=== PATIENT | female | born 1935 | race Caucasian/White ===

== ENCOUNTER 2021-11-19 20:29 | Inpatient (IN) | payer OTHER ==
[~2021-11-19] VITALS: Ht 167.6 cm; Wt 75.8 kg
[2021-11-19] MEDS ORDERED: NITROGLYCERIN 0.4 MG SL TAB SL ONE (20:45)
[2021-11-19] MEDS ORDERED: FUROSEMIDE 40 MG/4 ML VIAL IV ONE (20:45)
[2021-11-19] MEDS ORDERED: LABETALOL HCL 5 MG/ML 4ML SYRINGE IV ONE ×2 (20:45→23:00)
[2021-11-19 22:24] LABS: Basophils # (auto) 0 10 ^3/uL (0-0.2); Basophils % (auto) 0.5 % (0.0-2.0); Eosinophils # (auto) 0.1 10 ^3/uL (0-0.8); Eosinophils % (auto) 0.8 % (0.0-7.0); Hematocrit 41.6 % (36.0-46.0); Hemoglobin 13.3 g/dL (12.2-16.2); Lymphocytes # (auto) 2.2 10 ^3/uL (0.4-5.4); Lymphocytes % (auto) 24.2 % (10.0-50.0); Mean Corpuscular Hemoglobin 27.2 pg (28.0-32.0); Mean Corpuscular Volume 85.2 fL (80.0-100.0); Monocytes # (auto) 0.4 10 ^3/uL (0-1.3); Monocytes % (auto) 4.5 % (0.0-12.0); Neutrophils # (auto) 6.2 10 ^3/uL (1.6-8.6); Nucleated Red Blood Cells % 0.1 %; Red Blood Cells 4.89 10^6/uL (4.0-5.20); Red Cell Distribution Width 16.4 % (11.8-14.3); White Blood Cell 8.9 10^3/uL (4.4-10.8)
[2021-11-19 22:39] LABS: Albumin 3.6 g/dL (3.4-5.0); Calcium 9.1 mg/dL (8.5-10.1); Magnesium 1.9 mg/dL (1.6-2.6)
[2021-11-19 22:42] LABS: Bilirubin, Total 0.6 mg/dL (0.2-1.0); Total Protein 6.8 g/dL (6.4-8.2)
[2021-11-19] MEDS ORDERED: NITROGLYCERIN 0.4 MG SL TAB SL PRN (23:00)
[2021-11-19] MEDS ORDERED: ONDANSETRON HCL 4 MG/2 ML VIAL IV PRN (23:00)
[2021-11-19] MEDS ORDERED: CLOPIDOGREL BISULFATE 75 MG TAB PO ONE (23:00)
[2021-11-19] MEDS ORDERED: MORPHINE SULFATE INJ 2 MG/ml SYRG IV PRN (23:00)
[2021-11-19] MEDS ORDERED: HEPARIN SODIUM (PORCINE) 5000 UNITS/ML 1ML VIAL IV ONE (23:00)
[2021-11-19] MEDS ORDERED: ATORVASTATIN 20 MG TAB PO ONE (23:00)
[2021-11-19 23:19] LABS: INR 1.09 (0.9-1.15); Partial Thromboplastin Time 28.4 sec (24.6-33.4)
[2021-11-19 23:25] LABS: Urine Bacteria FEW /hpf (None Seen); Urine Blood Negative /uL (Negative); Urine Specific Gravity 1.007 (1.001-1.035); Urine WBC 3 /hpf (0 - 5)
[2021-11-19] MEDS ORDERED: HEPARIN DRIP/D5W 100UNITS/ML 250 ML IV SCH (23:45)
[2021-11-20] VITALS (54 sets, daily range): BP systolic 94–170; BP diastolic 52–148
[2021-11-20] MEDS: TEMAZEPAM 15 MG CAP PO PRN (01:36)
[2021-11-20 04:45] LABS: Basophils # (auto) 0.1 10 ^3/uL (0-0.2); Basophils % (auto) 1.1 % (0.0-2.0); Eosinophils # (auto) 0 10 ^3/uL (0-0.8); Eosinophils % (auto) 0.1 % (0.0-7.0); Hematocrit 39.3 % (36.0-46.0); Hemoglobin 12.9 g/dL (12.2-16.2); Lymphocytes # (auto) 1.6 10 ^3/uL (0.4-5.4); Lymphocytes % (auto) 21.9 % (10.0-50.0); Mean Corpuscular Hemoglobin 27.1 pg (28.0-32.0); Mean Corpuscular Hgb Conc. 32.8 g/dL (32.0-36.0); Mean Corpuscular Volume 82.7 fL (80.0-100.0); Monocytes # (auto) 0.3 10 ^3/uL (0-1.3); Monocytes % (auto) 4.6 % (0.0-12.0); Neutrophils # (auto) 5.3 10 ^3/uL (1.6-8.6); Neutrophils % (auto) 72.3 % (37.0-80.0); Red Blood Cells 4.75 10^6/uL (4.0-5.20); Red Cell Distribution Width 15.9 % (11.8-14.3); White Blood Cell 7.3 10^3/uL (4.4-10.8)
[2021-11-20 05:11] LABS: Albumin 3.5 g/dL (3.4-5.0); BUN/Creatinine Ratio 14.9; Bilirubin, Total 0.8 mg/dL (0.2-1.0); Potassium 3.6 mmol/L (3.5-5.1); Total Protein 6.3 g/dL (6.4-8.2)
[2021-11-20 07:28] LABS: INR 1.17 (0.9-1.15)
[2021-11-20 07:37] LABS: Partial Thromboplastin Time 128.1 sec (24.6-33.4)
[2021-11-20] MEDS: HEPARIN DRIP/D5W 100UNITS/ML 250 ML IV SCH (09:30)
[2021-11-20] MEDS ORDERED: ENOXAPARIN SOD 30 MG/0.3 ML SYRINGE SC SCH (10:00)
[2021-11-20] MEDS: PANTOPRAZOLE 40 MG TAB PO SCH (10:47)
[2021-11-20] MEDS: ASPirin 81 mg TAB PO SCH (10:47)
[2021-11-20] MEDS ORDERED: cloNIDine HCL 0.1 MG TAB PO PRN (12:00)
[2021-11-20] MEDS ORDERED: amLODIPine BESYLATE 5 MG TAB PO ONE (12:00)
[2021-11-20] MEDS ORDERED: LOSARTAN POTASSIUM 25 MG TAB PO ONE (12:00)
[2021-11-20] MEDS: HYDROcodone-ACET 5/325MG TAB PO PRN ×2 (12:08→21:48)
[2021-11-20] MEDS ORDERED: ASPI-498 OR (13:54)
[2021-11-20] MEDS ORDERED: IBUP400T23 PO (14:23)
[2021-11-20] MEDS ORDERED: ATOR20TA PO (14:23)
[2021-11-20] MEDS ORDERED: POTA10TA51 PO (14:23)
[2021-11-20] MEDS ORDERED: METO-289 PO (14:23)
[2021-11-20] MEDS ORDERED: FOLI1TAB6 PO (14:23)
[2021-11-20] MEDS ORDERED: CYAN500L3 PO (14:23)
[2021-11-20] MEDS ORDERED: FURO20TA3 PO (14:23)
[2021-11-20] MEDS ORDERED: HYDR-4902 PO (14:23)
[2021-11-20 15:20] LABS: INR 1.08 (0.9-1.15); Partial Thromboplastin Time 31.8 sec (24.6-33.4)
[2021-11-20] MEDS ORDERED: HEPARIN SODIUM (PORCINE) 5000 UNITS/ML 1ML VIAL IV ONE (16:15)
[2021-11-20] MEDS ORDERED: HEPARIN DRIP/D5W 100UNITS/ML 250 ML IV SCH (16:30)
[2021-11-20] MEDS: METOPROLOL SUCCINATE XL 50 MG TAB PO SCH (17:50)
[2021-11-20] MEDS: ATORVASTATIN 20 MG TAB PO SCH (21:49)
[2021-11-20 22:53] LABS: INR 1.12 (0.9-1.15)
[2021-11-20 23:13] LABS: Partial Thromboplastin Time 92.1 sec (24.6-33.4)
[2021-11-21] VITALS (31 sets, daily range): BP systolic 83–144; BP diastolic 36–110
[2021-11-21] MEDS: TEMAZEPAM 15 MG CAP PO PRN ×2 (00:15→23:09)
[2021-11-21] MEDS: HYDROcodone-ACET 5/325MG TAB PO PRN ×2 (07:12→20:45)
[2021-11-21 08:17] LABS: INR 1.06 (0.9-1.15); Partial Thromboplastin Time 32.2 sec (24.6-33.4)
[2021-11-21] MEDS ORDERED: HEPARIN SODIUM (PORCINE) 5000 UNITS/ML 1ML VIAL IV ONE (09:00)
[2021-11-21] MEDS ORDERED: HEPARIN DRIP/D5W 100UNITS/ML 250 ML IV SCH (09:00)
[2021-11-21] MEDS ORDERED: CIPROFLOXACIN 400MG/200ML 200 ML IV ONE ×2 (09:15→10:15)
[2021-11-21 09:48] LABS: Urine Bacteria NONE SEEN /hpf (None Seen); Urine Blood 3+ /uL (Negative); Urine Mucus FEW (None Seen); Urine Specific Gravity 1.015 (1.001-1.035); Urine WBC 2767 /hpf (0 - 5); Urine WBC Clumps PRESENT /hpf (None Seen)
[2021-11-21] MEDS ORDERED: LOSARTAN POTASSIUM 25 MG TAB PO SCH (10:00)
[2021-11-21 10:32] LABS: Basophils # (auto) 0.1 10 ^3/uL (0-0.2); Basophils % (auto) 1.1 % (0.0-2.0); Eosinophils # (auto) 0.2 10 ^3/uL (0-0.8); Eosinophils % (auto) 2.6 % (0.0-7.0); Hematocrit 40.7 % (36.0-46.0); Hemoglobin 13.7 g/dL (12.2-16.2); Lymphocytes # (auto) 2.4 10 ^3/uL (0.4-5.4); Lymphocytes % (auto) 25.9 % (10.0-50.0); Mean Corpuscular Hemoglobin 28.2 pg (28.0-32.0); Mean Corpuscular Hgb Conc. 33.6 g/dL (32.0-36.0); Mean Corpuscular Volume 83.9 fL (80.0-100.0); Monocytes # (auto) 0.6 10 ^3/uL (0-1.3); Monocytes % (auto) 6.5 % (0.0-12.0); Neutrophils # (auto) 5.8 10 ^3/uL (1.6-8.6); Neutrophils % (auto) 63.9 % (37.0-80.0); Nucleated Red Blood Cells % 0.1 %; Red Blood Cells 4.85 10^6/uL (4.0-5.20); Red Cell Distribution Width 16.3 % (11.8-14.3); White Blood Cell 9.1 10^3/uL (4.4-10.8)
[2021-11-21] MEDS: METOPROLOL SUCCINATE XL 50 MG TAB PO SCH (10:36)
[2021-11-21] MEDS: PANTOPRAZOLE 40 MG TAB PO SCH (10:36)
[2021-11-21] MEDS: ASPirin 81 mg TAB PO SCH (10:39)
[2021-11-21] MEDS: amLODIPine BESYLATE 5 MG TAB PO SCH (10:41)
[2021-11-21 11:51] LABS: BUN/Creatinine Ratio 13.3; Calcium 8.8 mg/dL (8.5-10.1); Potassium 3.6 mmol/L (3.5-5.1)
[2021-11-21 15:30] LABS: INR 1.13 (0.9-1.15); Partial Thromboplastin Time 67.8 sec (24.6-33.4)
[2021-11-21] MEDS ORDERED: fentaNYL CITRATE 100 MCG/2 ML VL ONE (16:26)
[2021-11-21] MEDS ORDERED: MIDAZOLAM HCL 2MG/2ML 2ml VIAL (1mg/ml) ONE (16:27)
[2021-11-21] MEDS ORDERED: IODIXANOL 320MG/ML 100ML BTL IV ONE (16:31)
[2021-11-21] MEDS ORDERED: VERAPAMIL 2.5MG/ML INJ 2ML VIAL IV ONE (16:31)
[2021-11-21] MEDS ORDERED: SODIUM CHL 0.9% 0 ML ONE (16:31)
[2021-11-21] MEDS ORDERED: HEPARIN SODIUM (PORCINE) 5000 UNITS/ML 1ML VIAL ONE (16:31)
[2021-11-21] MEDS ORDERED: LIDOCAINE 2%HCL (LOCAL ANESTH.) INJ 20ML MDV ONE (16:31)
[2021-11-21] MEDS ORDERED: ANGIOMAX 250 MG VIAL IV ONE (16:31)
[2021-11-21] MEDS ORDERED: SODIUM CHLORIDE 0.9% 500 ML IV ONE (17:30)
[2021-11-21] MEDS: SODIUM CHLORIDE 0.9% 1,000 ML IV SCH (19:50)
[2021-11-21] MEDS: ATORVASTATIN 20 MG TAB PO SCH (23:09)
[2021-11-22] VITALS (18 sets, daily range): BP systolic 100–141; BP diastolic 58–94
[2021-11-22] MEDS: SODIUM CHLORIDE 0.9% 1,000 ML IV SCH (04:12)
[2021-11-22 04:40] LABS: Basophils # (auto) 0.1 10 ^3/uL (0-0.2); Basophils % (auto) 0.9 % (0.0-2.0); Eosinophils # (auto) 0.3 10 ^3/uL (0-0.8); Eosinophils % (auto) 3.8 % (0.0-7.0); Hematocrit 38.8 % (36.0-46.0); Hemoglobin 12.7 g/dL (12.2-16.2); Lymphocytes # (auto) 2.4 10 ^3/uL (0.4-5.4); Lymphocytes % (auto) 33.8 % (10.0-50.0); Mean Corpuscular Hemoglobin 27.4 pg (28.0-32.0); Mean Corpuscular Hgb Conc. 32.9 g/dL (32.0-36.0); Mean Corpuscular Volume 83.3 fL (80.0-100.0); Monocytes # (auto) 0.5 10 ^3/uL (0-1.3); Monocytes % (auto) 6.4 % (0.0-12.0); Neutrophils % (auto) 55.1 % (37.0-80.0); Nucleated Red Blood Cells % 0.1 %; Red Blood Cells 4.65 10^6/uL (4.0-5.20); Red Cell Distribution Width 16.5 % (11.8-14.3); White Blood Cell 7.2 10^3/uL (4.4-10.8)
[2021-11-22 04:51] LABS: BUN/Creatinine Ratio 16.8; Calcium 8.3 mg/dL (8.5-10.1); Potassium 3.7 mmol/L (3.5-5.1)
[2021-11-22] MEDS ORDERED: cefTRIAXone 1GM/50ML D5W 50 ML IV SCH (09:00)
[2021-11-22] MEDS: PANTOPRAZOLE 40 MG TAB PO SCH (09:22)
[2021-11-22] MEDS: METOPROLOL SUCCINATE XL 50 MG TAB PO SCH (09:23)
[2021-11-22] MEDS ORDERED: ASPirin 81 mg TAB PO SCH (10:00)
[2021-11-22] MEDS: amLODIPine BESYLATE 5 MG TAB PO SCH (10:00)
[2021-11-22] MEDS: HYDROcodone-ACET 5/325MG TAB PO PRN (14:06)
[2021-11-22] MEDS ORDERED: LEVO500T31 PO (16:51)
== END 2021-11-22 19:15 | disposition home or self-care (01) | DRG 281 ==
LOC: EDBD 20:29 → ER 20:29 → EDBD 23:08 → TELE 23:08 → ICU WEST 11-20 09:09 → ICU CENTRL 11-22 10:07 → DOU IN ICU 11-22 10:25
PROVIDERS: ADMIT Nurse Practitioner; ATTEND Internal Medicine
PROC: B2111ZZ Fluoroscopy of Multiple Coronary Arteries using Low Osmolar Contrast (ICD-10-PCS; principal; 2021-11-21)
PROC: B2151ZZ Fluoroscopy of Left Heart using Low Osmolar Contrast (ICD-10-PCS; 2021-11-21)
PROC: 4A023N7 Measurement of Cardiac Sampling and Pressure, Left Heart, Percutaneous Approach (ICD-10-PCS; 2021-11-21)
DX: I21.4 Non-ST elevation (NSTEMI) myocardial infarction (principal); I16.1 Hypertensive emergency; N30.00 Acute cystitis without hematuria; I16.0 Hypertensive urgency; E66.01 Morbid (severe) obesity due to excess calories; E78.5 Hyperlipidemia, unspecified; G62.9 Polyneuropathy, unspecified; I10 Essential (primary) hypertension; M19.90 Unspecified osteoarthritis, unspecified site; I25.10 Atherosclerotic heart disease of native coronary artery without angina pectoris; Z86.73 Personal history of transient ischemic attack (TIA), and cerebral infarction without residual deficits; Z95.0 Presence of cardiac pacemaker; Z68.27 Body mass index [BMI] 27.0-27.9, adult
CPT/HCPCS: 36415; 70450; 71045; 73562; 80048; 80053; 81001; 82550; 83735; 83880; 84484; 85025; 85610; 85730; 87081; 87086; 87088; 87186; 93005; 93306; 96365; 96375; 99291; G0378; J0696; J2250; J3490; Q9967

== ENCOUNTER → 2022-02-26 | Outpatient (CLI) | payer OTHER ==
[~2022-02-26] MED LIST: ASPI-498 OR; ATOR20TA PO; CYAN500L3 PO; FOLI1TAB6 PO; FURO20TA3 PO; HYDR-4902 PO; IBUP400T23 PO; LEVO500T31 PO; METO-289 PO; POTA10TA51 PO
== END | disposition home or self-care (01) ==
LOC: LAB 11:22
PROVIDERS: ATTEND Internal Medicine
DX: J44.9 Chronic obstructive pulmonary disease, unspecified (principal)
CPT/HCPCS: 36415; 83880; 84443